=== PATIENT | female | born 1980 | race Caucasian/White ===

== ENCOUNTER 2018-10-13 12:56 | Emergency (ER) | payer BC, OTHER ==
[2018-10-13 13:05] VITALS: BP 102/70; PULSE 64; TEMP 98.1; BMI 34.1
[2018-10-13] MEDS ORDERED: KETOROLAC TROMETHAMINE 60 MG/2 ML VIAL IM ONE (13:34)
[2018-10-13] MEDS ORDERED: KETOROLAC TROMETHAMINE 60 MG/2 ML VIAL ONE (13:39)
--- NOTE | 2018-10-13 13:41 | PDOC ---
History of Present Illness - General Chief Complaint: Back Pain Stated Complaint: LOW BACK PAIN Time Seen by Provider: 10/13/18 13:17 History Source: Patient Exam Limitations: No Limitations - History of Present Illness Initial Comments: 10/13/18 13:36 38 yr female with c/o low back pain left side radiates to buttock started 2 hrs ago, pt was sitting at the time. pt denies abd pain or flank pain. pt has chronicn back pain followed by pain management. Occurred: reports: just prior to arrival Severity: reports: moderate Pain Location: reports: back Past History - Past Medical History Allergies/Adverse Reactions: Allergies Allergy/AdvReac Type Severity Reaction Status Date / Time No Known Drug Allergies Allergy Verified 09/09/15 06:44 Home Medications: Ambulatory Orders Gabapentin [Neurontin -] 600 mg PO Q8H 09/22/13 Valsartan [Diovan] 80 mg PO DAILY 09/22/13 FA/Mv,Ca,Iron,Min/Lycopene/Lut [Centrum Tablet] 2 each PO DAILY 09/25/13 Omeprazole [Prilosec (RX)] 20 mg PO DAILY 09/25/13 Salmeterol/Fluticasone [Advair 250Mcg/50Mcg -] 1 inh PO BID 09/25/13 Albuterol Sulfate [Proventil HFA Inhaler -] 1 - 2 inh PO PRN PRN 07/29/15 Calcium Carbonate/Vitamin D3 [Calcium 600 + Vit D Tablet] 1 each PO BID Cyanocobalamin Vit B-12 Inj. [Redisol] 1,000 mcg IM MONTHLY 07/29/15 Diclofenac Sodium [Diclofenac Sodium ER] 100 mg PO BID 07/29/15 Docusate Sodium [Colace -] 100 mg PO TID 07/29/15 Doxepin HCl [Sinequan -] 100 mg PO HS 07/29/15 Ergocalciferol (Vitamin D2) [Vitamin D] 50,000 unit PO WEEKLY 07/29/15 Fluticasone Prop 0.05% Nasal [Flonase -] 1 - 2 spray NS DAILY 07/29/15 Folic Acid 1 mg PO DAILY 07/29/15 Lamotrigine [Lamictal -] 200 mg PO DAILY 07/29/15 Loratadine [Claritin -] 10 mg PO DAILY 07/29/15 Mv-Mn/FA/Coq10/Lycopene/Lutein [Theragran-M Premier 50+ Caplet] 1 each PO DAILY 07/29/15 Oxycodone HCl/Acetaminophen [Percocet 10-325 mg Tablet -] 1 tab PO Q4H PRN 07/29 Prazosin HCl [Minipress -] 2 mg PO HS 07/29/15 Primidone [Mysoline] 150 mg PO HS 07/29/15 Oxycodone HCl/Acetaminophen [Percocet 5-325 mg Tablet -] 1 - 2 tab PO Q4H #20 tablet 09/09/15 Cyclobenzaprine HCl [Flexeril -] 10 mg PO TID PRN #21 tablet 10/13/18 Methylprednisolone [Medrol Dose Kenyon] 4 mg PO ASDIR #21 tablet 10/13/18 Anemia: Yes Asthma: Yes Cancer: No Cardiac Disorders: No CVA: No COPD: No CHF: No Dementia: No Diabetes: No GI Disorders: Yes (acid reflux) Disorders: No HTN: Yes Hypercholesterolemia: No Liver Disease: No Seizures: Yes (last seizure 2009) Thyroid Disease: No - Surgical History Abdominal Surgery: Yes Appendectomy: No Cardiac Surgery: No Cholecystectomy: No Lung Surgery: No Neurologic Surgery: Yes (laminectomy) Orthopedic Surgery: No - Immunization History Immunization Up to Date: Yes - Suicide/Smoking/Psychosocial Hx Smoking History: Never smoked Have you smoked in the past 12 months: No Hx Alcohol Use: No Drug/Substance Use Hx: No Substance Use Type: None Hx Substance Use Treatment: No Trauma Specific PMHX - Complaint Specific PMHX Arthritis: No Back Injury: No Neck Injury: No Hx Sacro Iliac Joint Dysfunction: No Review of Systems - Review of Systems Able to Perform ROS?: Yes Is the patient limited Singaporean proficient: No Constitutional: No: Symptoms Reported HEENTM: No: Symptoms Reported Respiratory: No: Symptoms reported Cardiac (ROS): No: Symptoms Reported ABD/GI: No: Symptoms Reported Musculoskeletal: Yes: Symptoms Reported, Back Pain, Other. No: Muscle Pain, Muscle Weakness Integumentary: No: Symptoms Reported *Physical Exam - Vital Signs Last Vital Signs Temp Pulse Resp BP Pulse Ox 98.1 F 64 16 102/70 99 10/13/18 12:57 10/13/18 12:57 10/13/18 12:57 10/13/18 12:57 10/13/18 12:57 - Physical Exam General Appearance: Yes: Nourished, Appropriately Dressed HEENT: positive: EOMI, SERVANDO, TMs Normal Neck: positive: Supple. negative: Tender Respiratory/Chest: positive: Lungs Clear, Normal Breath Sounds Cardiovascular: positive: Regular Rhythm, Regular Rate Gastrointestinal/Abdominal: positive: Normal Bowel Sounds, Soft Lymphatic: negative: Adenopathy Musculoskeletal: positive: Normal Inspection Extremity: positive: Normal Capillary Refill, Normal Inspection, Normal Range of Motion, Other (pos SLR left side ). negative: Tender, Swelling, Calf Tenderness, Erythema, Inflammation Integumentary: positive: Normal Color, Dry, Warm Neurologic: positive: Fully Oriented, Alert, Normal Mood/Affect, Normal Response , Motor Strength 5/5 Moderate Sedation - Procedure Monitoring Vital Signs: Procedure Monitoring Vital Signs Temperature 98.1 F 10/13/18 12:57 Pulse Rate 64 10/13/18 12:57 Respiratory Rate 16 10/13/18 12:57 Blood Pressure 102/70 10/13/18 12:57 O2 Sat by Pulse Oximetry (%) 99 10/13/18 12:57 Medical Decision Making - Medical Decision Making 10/13/18 13:45 cc: low back pain for 2 hrs radiates to her buttock worse sitting to standing. neg fever neg nvd, neg abd pain ambulatory with a cane. pt takes oxycodone for pain will r/o UTI r/o renal colic *DC/Admit/Observation/Transfer Diagnosis at time of Disposition: Back pain Qualifiers: Back pain location: low back pain Chronicity: chronic Back pain laterality: left Sciatica presence: with sciatica Sciatica laterality: sciatica of left side Qualified Code(s): M54.42 - Lumbago with sciatica, left side; G89.29 - Other chronic pain - Discharge Dispostion Disposition: HOME Condition at time of disposition: Good - Prescriptions Prescriptions: Cyclobenzaprine HCl [Flexeril -] 10 mg PO TID PRN #21 tablet PRN Reason: Muscle Spasms Methylprednisolone [Medrol Dose Kenyon] 4 mg PO ASDIR #21 tablet - Referrals - Patient Instructions Printed Discharge Instructions: DI for Low Back Pain Additional Instructions: please follow with your doctor take the medrol dose pack as directed (steroids) take the flexeril for any muscle spasm avoid any heavy lifting or bending return to ER for any worsening symptoms - Post Discharge Activity
[2018-10-13 13:56] LABS: HCG,QUALITATIVE URINE Negative
[2018-10-13 14:06] LABS: URINE APPEARANCE CLEAR; URINE BILIRUBIN NEGATIVE (<2.0 mg/dL); URINE COLOR LTYELLOW; URINE GLUCOSE (UA) NEGATIVE (NEGATIVE); URINE KETONE NEGATIVE (NEGATIVE); URINE LEUK ESTERASE NEGATIVE (NEGATIVE); URINE NITRITE NEGATIVE (NEGATIVE); URINE PROTEIN NEGATIVE (NEGATIVE); URINE UROBILINOGEN NEGATIVE mg/dL (0.2-1.0)
== END 2018-10-13 14:18 | disposition home or self-care (01) ==
LOC: JERFT 12:56
DX: M54.42 Lumbago with sciatica, left side (principal); G89.29 Other chronic pain; D64.9 Anemia, unspecified; J45.909 Unspecified asthma, uncomplicated; K21.9 Gastro-esophageal reflux disease without esophagitis; I10 Essential (primary) hypertension; Z86.69 Personal history of other diseases of the nervous system and sense organs
CPT/HCPCS: 81003; 84703; 99281-25

== ENCOUNTER 2018-12-28 07:38 | Emergency (ER) | payer BC, OTHER ==
[2018-12-28 07:46] VITALS: TEMP 98; BMI 31.7
[2018-12-28] MEDS ORDERED: KETOROLAC TROMETHAMINE 60 MG/2 ML VIAL IM ONE (10:08)
[2018-12-28] MEDS ORDERED: traMADol HCL 50 MG TABLET PO ONE (10:08)
--- NOTE | 2018-12-28 10:15 | PDOC ---
History of Present Illness - General Chief Complaint: Back Pain Stated Complaint: LOWER BACK Time Seen by Provider: 12/28/18 10:05 History Source: Patient - History of Present Illness Occurred: reports: yesterday Severity: reports: severe Pain Location: reports: back Past History - Past Medical History Allergies/Adverse Reactions: Allergies Allergy/AdvReac Type Severity Reaction Status Date / Time No Known Drug Allergies Allergy Verified 09/09/15 06:44 Home Medications: Ambulatory Orders Gabapentin [Neurontin -] 600 mg PO Q8H 09/22/13 Valsartan [Diovan] 80 mg PO DAILY 09/22/13 FA/Mv,Ca,Iron,Min/Lycopene/Lut [Centrum Tablet] 2 each PO DAILY 09/25/13 Omeprazole [Prilosec (RX)] 20 mg PO DAILY 09/25/13 Salmeterol/Fluticasone [Advair 250Mcg/50Mcg -] 1 inh PO BID 09/25/13 Albuterol Sulfate [Proventil HFA Inhaler -] 1 - 2 inh PO PRN PRN 07/29/15 Calcium Carbonate/Vitamin D3 [Calcium 600 + Vit D Tablet] 1 each PO BID Cyanocobalamin Vit B-12 Inj. [Redisol] 1,000 mcg IM MONTHLY 07/29/15 Diclofenac Sodium [Diclofenac Sodium ER] 100 mg PO BID 07/29/15 Docusate Sodium [Colace -] 100 mg PO TID 07/29/15 Ergocalciferol (Vitamin D2) [Vitamin D] 50,000 unit PO WEEKLY 07/29/15 Fluticasone Prop 0.05% Nasal [Flonase -] 1 - 2 spray NS DAILY 07/29/15 Folic Acid 1 mg PO DAILY 07/29/15 Lamotrigine [Lamictal -] 200 mg PO DAILY 07/29/15 Loratadine [Claritin -] 10 mg PO DAILY 07/29/15 Mv-Mn/FA/Coq10/Lycopene/Lutein [Theragran-M Premier 50+ Caplet] 1 each PO DAILY 07/29/15 Oxycodone HCl/Acetaminophen [Percocet 10-325 mg Tablet -] 1 tab PO Q4H PRN 07/29 Prazosin HCl [Minipress -] 2 mg PO HS 09/14/15 Oxycodone HCl/Acetaminophen [Percocet 5-325 mg Tablet -] 1 - 2 tab PO Q4H #20 tablet 09/09/15 Cyclobenzaprine HCl [Flexeril -] 10 mg PO TID PRN #21 tablet 10/13/18 Topiramate 25 mg PO DAILY 12/28/18 Trihexyphenidyl HCl 1 mg PO BID 12/28/18 traZODone HCL [Desyrel -] 150 mg PO HS 12/28/18 Anemia: Yes Asthma: Yes Cancer: No Cardiac Disorders: No CVA: No COPD: No CHF: No Dementia: No Diabetes: No GI Disorders: Yes (acid reflux) Disorders: No HTN: Yes Hypercholesterolemia: No Liver Disease: No Seizures: Yes (last seizure 2009) Thyroid Disease: No - Surgical History Abdominal Surgery: Yes Appendectomy: No Cardiac Surgery: No Cholecystectomy: No Lung Surgery: No Neurologic Surgery: Yes (laminectomy) Orthopedic Surgery: No - Immunization History Immunization Up to Date: Yes - Suicide/Smoking/Psychosocial Hx Smoking History: Never smoked Have you smoked in the past 12 months: No Information on smoking cessation initiated: No Hx Alcohol Use: No Drug/Substance Use Hx: No Substance Use Type: None Hx Substance Use Treatment: No Trauma Specific PMHX - Complaint Specific PMHX Arthritis: No Back Injury: No Neck Injury: No Hx Sacro Iliac Joint Dysfunction: No Review of Systems - Review of Systems Constitutional: No: Fever ABD/GI: No: Nausea, Vomiting, Abdominal cramping : No: Dysuria, Flank Pain Musculoskeletal: Yes: Back Pain Neurological: No: Numbness, Tingling, Weakness *Physical Exam - Vital Signs Last Vital Signs Temp Pulse Resp BP Pulse Ox 98 F 78 18 127/75 100 12/28/18 07:44 12/28/18 07:44 12/28/18 07:44 12/28/18 07:44 12/28/18 07:44 - Physical Exam General Appearance: Yes: Appropriately Dressed, Mild Distress HEENT: positive: Normal Voice Neck: positive: Supple Respiratory/Chest: negative: Respiratory Distress Gastrointestinal/Abdominal: positive: Soft. negative: Tender Musculoskeletal: positive: Vertebral Tenderness (to R lower back). negative: CVA Tenderness Integumentary: positive: Dry, Warm Neurologic: positive: Fully Oriented, Alert, Normal Mood/Affect, Motor Strength 5/5, Other (+SLR on the R) Moderate Sedation - Procedure Monitoring Vital Signs: Procedure Monitoring Vital Signs Temperature 98 F 12/28/18 07:44 Pulse Rate 78 12/28/18 07:44 Respiratory Rate 18 12/28/18 07:44 Blood Pressure 127/75 12/28/18 07:44 O2 Sat by Pulse Oximetry (%) 100 12/28/18 07:44 Medical Decision Making - Medical Decision Making 12/28/18 10:12 38-year-old female, history of asthma, seizures, endorses chronic back pain, s/ p surgery for herniated disks to L/S 4 years ago, follows up with Dr. Bain of pain management and currently taking 10 mg Percocet , here with worsening of her usual back pain since yesterday. Pain located to left lower back and radiates to R foot, which is not unusual for patient. States it hurts to walk and move. No acute lower extremity weakness, sensory changes, bladder or bowel incontinence or saddle anesthesia. Took Percocet this a.m. with no relief See exam Acute on chronic LBP Not improving w/ perc at home No red flags at thois time, i.e cauda equina -pain control in ED -reassess 12/28/18 11:37 Pain mproved with meds. Patient able to bear weight with her cane. Will DC to follow-up with her pain specialist *DC/Admit/Observation/Transfer Diagnosis at time of Disposition: Chronic back pain Qualifiers: Back pain location: low back pain Back pain laterality: right Sciatica presence : with sciatica Sciatica laterality: sciatica of right side Qualified Code(s): M54.41 - Lumbago with sciatica, right side; G89.29 - Other chronic pain - Discharge Dispostion Disposition: HOME Condition at time of disposition: Improved - Referrals Referrals: Jailene Navarrete MD [Primary Care Provider] - - Patient Instructions Printed Discharge Instructions: Low Back Pain Additional Instructions: Continue taking your medication at home and follow-up with your back pain specialist - Post Discharge Activity
[2018-12-28] MEDS ORDERED: traMADol HCL 50 MG TABLET ONE (10:40)
[2018-12-28] MEDS ORDERED: KETOROLAC TROMETHAMINE 60 MG/2 ML VIAL ONE (10:40)
--- NOTE | 2018-12-28 11:41 | PDOC ---
*Physical Exam - Vital Signs Last Vital Signs Temp Pulse Resp BP Pulse Ox 98 F 78 18 127/75 100 12/28/18 07:44 12/28/18 07:44 12/28/18 07:44 12/28/18 07:44 12/28/18 07:44 - Physical Exam Comments: 12/28/18 11:41 The patient was examined by PAMELA Benitez under my direct supervision. I personally evaluated the patient. I concur with the above findings and the plan of care. ED Treatment Course - Medications Given in the ED: ED Medications Discontinued Medications Generic Name Dose Route Start Last Admin Trade Name Cathy PRN Reason Stop Dose Admin Ketorolac Tromethamine 60 mg 12/28/18 10:08 12/28/18 10:50 Toradol Injection - IM 12/28/18 10:09 60 mg ONCE ONE Administration Oxycodone/Acetaminophen 1 combo 12/28/18 11:17 12/28/18 11:34 Percocet 5/325 - PO 12/28/18 11:18 1 combo ONCE ONE Administration Tramadol HCl 50 mg 12/28/18 10:08 12/28/18 10:50 Ultram - PO 12/28/18 10:09 50 mg ONCE ONE Administration *DC/Admit/Observation/Transfer Diagnosis at time of Disposition: Chronic back pain Qualifiers: Back pain location: low back pain Back pain laterality: right Sciatica presence : with sciatica Sciatica laterality: sciatica of right side Qualified Code(s): M54.41 - Lumbago with sciatica, right side - Discharge Dispostion Disposition: HOME Condition at time of disposition: Improved - Referrals Referrals: Jailene Navarrete MD [Primary Care Provider] - - Patient Instructions Printed Discharge Instructions: Low Back Pain Additional Instructions: Continue taking your medication at home and follow-up with your back pain specialist - Post Discharge Activity
[2018-12-28 12:00] VITALS: BP 131/78; PULSE 69
== END 2018-12-28 12:26 | disposition home or self-care (01) ==
LOC: JER 07:38
DX: M54.41 Lumbago with sciatica, right side (principal); J45.909 Unspecified asthma, uncomplicated; I10 Essential (primary) hypertension; K21.9 Gastro-esophageal reflux disease without esophagitis
CPT/HCPCS: 99282-25